=== PATIENT | female | born 1970 | race Caucasian/White ===

== ENCOUNTER → 2019-09-17 08:37 | Outpatient (BNVA) | payer MEDICARE, MEDICAID, SELFPAY | PROVIDERS: Family Provider Internal Medicine; PCP Emergency Medicine; Visit Provider Nurse Practitioner | DX: F33.1 Major depressive disorder, recurrent, moderate (principal); F70 Mild intellectual disabilities; G47.30 Sleep apnea, unspecified | CPT/HCPCS: 99213 ==

== ENCOUNTER 2020-02-25 15:10 | Outpatient (CLI) | payer MEDICARE, MEDICAID, SELFPAY ==
--- NOTE | 2020-02-25 15:27 | XR_ITS ---
WS: [id number] LATERAL LUMBAR SPINE: 3 view. Lateral radiographs are performed in upright neutral, flexion and extension to the patient's toleranc e. HISTORY: ACUTE BACK PAIN COMPARISON: None available. Posterior lumbar alignment is normal. Mild displacement throughout with moderate size osteophytes fro m the vertebral bodies. There is mild concave deformity superior endplate of L1. 2 mm retrolisthesis of L3 and L4 with no instability during flexion or extension. XR/XR lumbar spine f/e only [id number] IMPRESSION: 1. No lumbar spine instability. 2. Mild anterior wedging of L1. 3. Moderate spondylosis.
--- NOTE | 2020-02-25 15:27 | XR_ITS ---
WS: [id number] LEFT KNEE: 3 VIEW(S) TECHNIQUE: AP, oblique(s) and lateral. HISTORY: LEFT KNEE PAIN COMPARISON: None available. No definite acute fracture. There is a lucency in the medial tibial plateau which may be an osteophyt e. No fracture line is identified. No joint space narrowing or osteophytes. No joint effusion. No soft tissue abnormality. XR/XR knee LT 3V* [id number] IMPRESSION: No fracture identified. Subtle lucency in the medial tibial plateau is probably an osteophyte.
== END 2020-02-25 15:11 | disposition home or self-care (01) ==
LOC: RADWPI 15:14
PROVIDERS: Family Provider Internal Medicine; PCP Internal Medicine; Visit Provider Nurse Practitioner Family
DX: M25.562 Pain in left knee (principal); M47.816 Spondylosis without myelopathy or radiculopathy, lumbar region; S32.010A Wedge compression fracture of first lumbar vertebra, initial encounter for closed fracture; X58.XXXA Exposure to other specified factors, initial encounter
CPT/HCPCS: 72120; 73562

== ENCOUNTER → 2020-03-19 07:55 | Outpatient (BNVA) | payer MEDICARE, MEDICAID, SELFPAY | PROVIDERS: Family Provider Internal Medicine; PCP Emergency Medicine; Visit Provider Nurse Practitioner | DX: F33.1 Major depressive disorder, recurrent, moderate (principal); F70 Mild intellectual disabilities; G47.30 Sleep apnea, unspecified | CPT/HCPCS: 99213 ==

== ENCOUNTER 2020-10-09 13:35 | Outpatient (CLI) | payer MEDICARE, MEDICAID, SELFPAY ==
--- NOTE | 2020-10-09 13:38 | MM_ITS ---
WS: [id number] SCREENING DIGITAL MAMMOGRAM WITH CAD HISTORY: SCREENING COMPARISON: 01/10/2019 and 12/06/2016 Bilateral CC and MLO views submitted. Computer aided detection analyzed. Breast composition: There are scattered areas of fibroglandular density. No suspicious masses, microc alcifications or architectural distortion. MM/[place] [id number] IMPRESSION: BI-RADS: 1-Negative FOLLOW UP: 1 Year Follow-up
== END 2020-10-09 13:36 | disposition home or self-care (01) ==
LOC: RADSHAW 13:37
PROVIDERS: PCP Internal Medicine; Visit Provider Internal Medicine
DX: Z12.31 Encounter for screening mammogram for malignant neoplasm of breast (principal)
CPT/HCPCS: 77067

== ENCOUNTER → 2020-11-10 08:08 | Outpatient (BNVA) | payer MEDICARE, MEDICAID, SELFPAY | PROVIDERS: PCP Internal Medicine; Visit Provider Nurse Practitioner | DX: F33.1 Major depressive disorder, recurrent, moderate (principal); F70 Mild intellectual disabilities; G47.30 Sleep apnea, unspecified | CPT/HCPCS: 99214 ==

== ENCOUNTER 2020-11-24 17:12 | Emergency (ER) | payer OTHER, MEDICARE, MEDICAID, SELFPAY ==
[2020-11-24 17:26] VITALS: BMI 41.3
[2020-11-24 17:37] VITALS: BP 142/84; PULSE 78; RESP 20; TEMP 36.8; O2SAT 97
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
--- NOTE | 2020-11-24 18:06 | PC.PHAR ---
pt is [place]-caregiver caseys states the pt lives with parents so [facility] doesnt know what meds the pt takes-both parents are ams-pt states she takes care of her own meds at home-medications entered are meds that the pt states she takes and what shows has been filled on ext med history-kayleen filled bupropion sr 100mg bid on 11/04/20 not been picked up from the pharmacy-handy villeda wrote rx for plain bupropion hcl 100mg bid on 11/10/20 pt states she has been taking an old rx last filled on 08/25/20 30d/s for the plain
[2020-11-24] MEDS: acetaminophen 500 mg Tablet 1000 MG PO (18:15)
[2020-11-24 18:18] VITALS: BP 139/86; PULSE 77; RESP 18; O2SAT 97
== END 2020-11-24 19:50 | disposition home or self-care (01) ==
PROVIDERS: Emergency Provider Physician Assistant; PCP Internal Medicine
DX: S80.02XA Contusion of left knee, initial encounter (principal); V89.2XXA Person injured in unspecified motor-vehicle accident, traffic, initial encounter
CPT/HCPCS: 70450; 73562; 99283

== ENCOUNTER 2021-03-02 14:46 | Outpatient (CLI) | payer MEDICARE, MEDICAID, SELFPAY ==
--- NOTE | 2021-03-02 15:15 | MR_ITS ---
WS: [id number] MRI LEFT KNEE HISTORY: KNEE PAIN, LEFT COMPARISON: Radiographs 11/24/2020 Anterior cruciate ligament: Intact. Posterior cruciate ligament: Intact. Medial collateral ligament: Intact. Posterior lateral corner structures: Intact. Medial menisci: Intact. Normal signal, size and shape. Lateral meniscus: Horizontal tear in the posterior horn extends to the free edge. Extensor mechanism: Distal quadriceps tendon and patellar tendons are intact. Fluid and soft tissue: Small suprapatellar joint effusion. No Carranza's cyst. Osseous and articular structures: Patellofemoral compartment: Mild narrowing of patellofemoral compartment. There is chondromalacia of the medial and lateral patellar facets. Slightly greater loss of cartilage along the lateral facet. N o marrow edema or fracture. Medial compartment: Mild narrowing of the medial compartment. Diffuse thinning and loss of cartilage. There is a small amount of edema at the base of the tibial spines. Lateral compartment: Moderate narrowing of the lateral compartment with near complete loss of cartila ge. No marrow edema. Marker is placed over the anterior medial knee. In the area of the marker there is a superficial ashlie ection measuring 4.0 x 2.6 cm consistent with fluid. MR/MR knee LT wo con* [id number] IMPRESSION: 1. Quality of this examination is limited by body habitus. 2. Moderate narrowing of the lateral compartment with near complete loss of ca rtilage. 3. Mild narrowing of the medial compartment with scattered loss of cartilage a nd joint space narrowing. 4. Horizontal tear posterior horn lateral meniscus. 5. Palpable area corresponds to fluid collection within the subcutaneous soft tissues.
== END 2021-03-02 14:47 | disposition home or self-care (01) ==
PROVIDERS: PCP Internal Medicine; Visit Provider Internal Medicine
DX: S83.282A Other tear of lateral meniscus, current injury, left knee, initial encounter (principal); X58.XXXA Exposure to other specified factors, initial encounter
CPT/HCPCS: 73721

== ENCOUNTER → 2021-10-26 09:59 | Outpatient (BNVA) | payer MEDICARE, MEDICAID, SELFPAY | PROVIDERS: PCP Internal Medicine; Visit Provider Emergency Medicine | DX: I87.2 Venous insufficiency (chronic) (peripheral) (principal); L97.319 Non-pressure chronic ulcer of right ankle with unspecified severity; I96 Gangrene, not elsewhere classified | CPT/HCPCS: 11042; 87070; 87176; 87205; 99212; 99213 ==

== ENCOUNTER → 2021-11-09 13:08 | Outpatient (BNVA) | payer MEDICARE, MEDICAID, SELFPAY | PROVIDERS: PCP Internal Medicine; Visit Provider Emergency Medicine | DX: I87.2 Venous insufficiency (chronic) (peripheral) (principal); L97.319 Non-pressure chronic ulcer of right ankle with unspecified severity; I96 Gangrene, not elsewhere classified | CPT/HCPCS: 11042 ==

== ENCOUNTER → 2021-11-16 10:51 | Outpatient (BNVA) | payer MEDICARE, MEDICAID, SELFPAY | PROVIDERS: PCP Internal Medicine; Visit Provider Emergency Medicine | DX: I87.2 Venous insufficiency (chronic) (peripheral) (principal); L97.312 Non-pressure chronic ulcer of right ankle with fat layer exposed; I96 Gangrene, not elsewhere classified | CPT/HCPCS: 11042 ==

== ENCOUNTER → 2021-11-23 10:43 | Outpatient (BNVA) | payer MEDICARE, MEDICAID, SELFPAY | PROVIDERS: PCP Internal Medicine; Visit Provider Emergency Medicine | DX: I87.2 Venous insufficiency (chronic) (peripheral) (principal); L97.312 Non-pressure chronic ulcer of right ankle with fat layer exposed; I96 Gangrene, not elsewhere classified | CPT/HCPCS: 11042 ==

== ENCOUNTER 2021-11-26 09:09 | Outpatient (CLI) | payer MEDICARE, MEDICAID, SELFPAY ==
--- NOTE | 2021-11-26 09:24 | MM_ITS ---
WS: [id number] SCREENING DIGITAL BREAST TOMOSYNTHESIS MAMMOGRAM WITH CAD HISTORY: SCREENING COMPARISON: 10/09/2020 and 01/10/2019 Bilateral CC and MLO with tomosynthesis views submitted. Synthetic mammography reviewed. Computer aid ed detection analyzed. Breast composition: There are scattered areas of fibroglandular density. No suspicious masses, microc alcifications or architectural distortion. MM/[place] [id number] IMPRESSION: BI-RADS: 1-Negative FOLLOW UP: 1 Year Follow-up
== END 2021-11-26 09:10 | disposition home or self-care (01) ==
PROVIDERS: PCP Internal Medicine; Visit Provider Internal Medicine
DX: Z12.31 Encounter for screening mammogram for malignant neoplasm of breast (principal)
CPT/HCPCS: 77063; 77067

== ENCOUNTER → 2021-11-30 10:41 | Outpatient (BNVA) | payer MEDICARE, MEDICAID, SELFPAY | PROVIDERS: PCP Internal Medicine; Visit Provider Nurse Practitioner Family | DX: I87.2 Venous insufficiency (chronic) (peripheral) (principal); L97.312 Non-pressure chronic ulcer of right ankle with fat layer exposed | CPT/HCPCS: 99212 ==

== ENCOUNTER 2021-12-03 08:05 | Outpatient (CLI) | payer MEDICARE, MEDICAID, SELFPAY ==
--- NOTE | 2021-12-03 08:30 | USCV_ITS ---
Courtney Guerra Age: 51 Gender: F : 1970 Exam Date: 12/03/2021 08:24 Ordering Phys: Cynthia Dennis DO Technologist: LAYNE [place] [facility] [place]IN AND SWELLING HISTORY: Lower extremity swelling. Lower extremity pain. PROCEDURES: Venous duplex imaging was performed in only the right lower extremity. The following venous structures were evaluated: common femoral vein, profunda vein, proximal portion of the greater saphenous vein, superficial femoral vein, and the popliteal vein. In addition, the posterior tibial and peroneal trunk were evaluated. Serial compression, augmentation maneuvers, and spectral Doppler flow evaluation were performed. FINDINGS: + DVT seen in Right CFV and Pop V. Non compressible Right GSV from Jx to ankle. All other veins appear patent at this time. [employer] spoke Payden with at Doctor's office at 0834 on 12/03/21 and released patient to go home. CONCLUSIONS DVT Right CFV and popliteal veins. Right GSV is occluded wth superficial thrombus from thigh to ankle. [employer] spoke Payden with at Doctor's office at 0834 on 12/03/21 and released patient to go home. Fabian France MD (Electronically Signed) Final Date: 03 December 2021 12:11 S
== END 2021-12-03 08:06 | disposition home or self-care (01) ==
LOC: RAD 08:07
PROVIDERS: PCP Internal Medicine; Visit Provider Emergency Medicine
DX: I82.431 Acute embolism and thrombosis of right popliteal vein (principal); I82.411 Acute embolism and thrombosis of right femoral vein; M79.89 Other specified soft tissue disorders; M79.604 Pain in right leg
CPT/HCPCS: 93971

== ENCOUNTER → 2022-04-07 12:19 | Outpatient (BNVA) | payer MEDICARE, MEDICAID, SELFPAY | PROVIDERS: PCP Internal Medicine; Visit Provider Surgery | DX: R19.5 Other fecal abnormalities (principal) | CPT/HCPCS: 99203 ==